=== PATIENT | female | born 1965 | race Caucasian/White ===

== ENCOUNTER 2017-06-07 13:14 | Emergency (ER) | payer BC ==
[2017-06-07 13:29] VITALS: BP 161/50
[2017-06-07] MEDS ORDERED: DEXAMETHASONE 10 MG/ML VIAL PO STA (13:34)
--- NOTE | 2017-06-07 13:36 | ED Physician Documentation ---
PD HPI URI - Stated complaint Stated Complaint: SORE THROAT/LOST VOICE/HEADACHE - Chief complaint Chief Complaint: Heent - History obtained from History obtained from: Patient, Family - History of Present Illness Timing - onset: How many weeks ago (1.5) Timing duration: Weeks (1.5) Timing details: Gradual onset Pain level max: 5 Pain level now: 4 Associated symptoms: Nasal congestion, Rhinorrhea, Sore throat, Productive cough (plascencia/green sputum). No: Fever, Chills, Chest pain, Dyspnea Contributing factors: Sick contact Improves by: Rest Worsened by: Activity, Breathing Recently seen: Clinic (Patient was seen in urgent care and given antibiotic. Unknown diagnosis. States she did not take the antibiotic.) Review of Systems Constitutional: denies: Fever, Chills Nose: reports: Rhinorrhea / runny nose, Congestion Throat: reports: Sore throat Respiratory: reports: Cough. denies: Wheezing : denies: Dysuria Skin: denies: Rash Musculoskeletal: denies: Neck pain, Back pain Neurologic: denies: Headache PD PAST MEDICAL HISTORY - Past Medical History Past Medical History: No - Past Surgical History Past Surgical History: No - Present Medications Home Medications: Ambulatory Orders Medication Instructions Recorded Confirmed Benzonatate [Tessalon Perle] 100 - 200 mg PO TID PRN #30 capsule 06/07/17 Cetirizine HCl/Pseudoephedrine 1 each PO BID PRN #30 tab.er.12h 06/07/17 [Zyrtec-D Tablet] Hormone Replacement Therapy 06/07/17 Neomycin/Polymyx/Hc Otic Drops 4 drops LEFTEAR TID #1 bottle 06/07/17 [Cortisporin Ear Susp] Thyroid Supplement 06/07/17 - Allergies Allergies/Adverse Reactions: Allergies Allergy/AdvReac Type Severity Reaction Status Date / Time codeine Allergy Hives Verified 06/07/17 13:29 Penicillins Allergy Hives Verified 06/07/17 13:29 oxycodone AdvReac Edema Verified 06/07/17 13:29 - Living Situation Living Situation: reports: With family Living Arrangement: reports: At home - Social History Does the pt smoke?: No Smoking Status: Never smoker Does the pt have substance abuse?: No - Family History Family history: reports: Non contributory PD ED PE NORMAL - Vitals Vital signs reviewed: Yes - General General: Alert and oriented X 3, No acute distress, Well developed/nourished - HEENT HEENT: PERRL, Ears normal, Moist mucous membranes, Pharynx benign (Posterior cobblestoning. Normal tonsils. No exudates. Uvula midline. Normal phonation) - Neck Neck: Supple, no meningeal sign, No bony TTP, No adenopathy - Cardiac Cardiac: RRR, Strong equal pulses - Respiratory Respiratory: No respiratory distress, Clear bilaterally - Abdomen Abdomen: Soft, Non tender, Non distended - Derm Derm: Warm and dry, No rash - Neuro Neuro: Alert and oriented X 3 - Psych Psych: Normal mood, Normal affect Results - Vitals Vitals: Vital Signs - 24 hr 06/07/17 13:27 Temperature 37.1 C Heart Rate 64 Respiratory 16 Rate Blood Pressure 161/50 H O2 Saturation 100 Oxygen O2 Source Room air PD MEDICAL DECISION MAKING - ED course Complexity details: considered differential, d/w patient, d/w family ED course: Patient is a 51-year-old female presents to the emergency department what appears to be a viral upper respiratory infection. No evidence of streptococcal pharyngitis clinically. Will place on decongestants for home. Given dexamethasone here. Will continue supportive care and follow-up with her doctor. She is well-appearing, nontoxic. Patient counseled regarding signs and symptoms for which I believe and urgent re-evaluation would be necessary. Patient with good understanding of and agreement to plan and is comfortable going home at this time This document was made in part using voice recognition software. While efforts are made to proofread this document, sound alike and grammatical errors may occur. Departure - Departure Disposition: 01 Home, Self Care Clinical Impression: Viral URI Otitis externa Qualifiers: Otitis externa type: unspecified type Chronicity: acute Laterality: left Qualified Code(s): H60.502 - Unspecified acute noninfective otitis externa, left ear Condition: Good Instructions: ED Viral Syndrome, ED Otitis Externa Follow-Up: Gary Hwang MD [Primary Care Provider] - Within 1 week Prescriptions: Benzonatate [Tessalon Perle] 100 - 200 mg PO TID PRN #30 capsule PRN Reason: Cough Cetirizine HCl/Pseudoephedrine [Zyrtec-D Tablet] 1 each PO BID PRN #30 tab.er.12h PRN Reason: Nasal Congestion Neomycin/Polymyx/Hc Otic Drops [Cortisporin Ear Susp] 4 drops LEFTEAR TID #1 bottle Comments: Return if you worsen. Drink plenty of fluids and rest.
== END 2017-06-07 13:44 | disposition home or self-care (01) ==
LOC: ED 13:14
DX: J06.9 Acute upper respiratory infection, unspecified (principal); B97.89 Other viral agents as the cause of diseases classified elsewhere; H60.502 Unspecified acute noninfective otitis externa, left ear
CPT/HCPCS: 99281; 99283

== ENCOUNTER 2017-10-19 08:00 | Outpatient (CLI) | payer BC | END 2017-10-19 08:01 | LOC: LAB.R 08:00 | PROVIDERS: ATTEND Physician Assistant Medical | DX: N39.0 Urinary tract infection, site not specified (principal) | CPT/HCPCS: 87086 ==

== ENCOUNTER 2018-12-29 11:47 | Emergency (ER) | payer BC ==
--- NOTE | 2018-12-29 13:10 | ED Physician Documentation ---
PD HPI FEMALE - Stated complaint Stated Complaint: FEMALE - Chief complaint Chief Complaint: UTI - History obtained from History obtained from: Patient - History of Present Illness Timing - onset: How many days ago (2-3) Timing - duration: Days Timing - details: Abrupt onset, Still present (has dysuria c/w UTI for few days. Seen by PMD and Rx Macrobid, which she has been on since earlier yesterday. Having increased symptoms voiding and also some lower back pain. No fevers.) Associated symptoms: Abdominal pain, Dysuria, Urinary frequency. No: Fever, Vaginal bleeding, Vaginal discharge Similar symptoms before: Diagnosis (UTI in the past) Recently seen: Clinic Review of Systems Constitutional: denies: Fever, Chills Respiratory: denies: Dyspnea, Cough GI: denies: Nausea, Vomiting PD PAST MEDICAL HISTORY - Past Medical History Past Medical History: No - Past Surgical History Past Surgical History: No - Present Medications Home Medications: Ambulatory Orders Medication Instructions Recorded Confirmed Benzonatate [Tessalon Perle] 100 - 200 mg PO TID PRN #30 capsule 06/07/17 Cetirizine HCl/Pseudoephedrine 1 each PO BID PRN #30 tab.er.12h 06/07/17 [Zyrtec-D Tablet] Hormone Replacement Therapy 06/07/17 Neomycin/Polymyx/Hc Otic Drops 4 drops LEFTEAR TID #1 bottle 06/07/17 [Cortisporin Ear Susp] Thyroid Supplement 06/07/17 Sulfamethox/Trimeth 800/160 1 each PO BID #14 tablet 12/29/18 [Bactrim Ds 800/160] - Allergies Allergies/Adverse Reactions: Allergies Allergy/AdvReac Type Severity Reaction Status Date / Time codeine Allergy Hives Verified 12/29/18 11:51 Penicillins Allergy Hives Verified 12/29/18 11:51 oxycodone AdvReac Edema Verified 12/29/18 11:51 - Social History Does the pt smoke?: No Smoking Status: Never smoker Does the pt drink ETOH?: No Does the pt have substance abuse?: No - Immunizations Immunizations are current?: Yes - POLST Patient has POLST: No PD ED PE NORMAL - Vitals Vital signs reviewed: Yes - General General: Alert and oriented X 3, No acute distress, Well developed/nourished - Abdomen Abdomen: Soft, Non tender - Female Female : Deferred - Back Back: No CVA TTP - Derm Derm: Normal color, Warm and dry Results - Vitals Vitals: Vital Signs - 24 hr 12/29/18 12/29/18 11:51 14:12 Temperature 36.6 C Heart Rate 52 L 54 L Respiratory 16 16 Rate Blood Pressure 155/73 H 148/72 H O2 Saturation 100 100 Oxygen O2 Source Room air - Labs Labs: Laboratory Tests 12/29/18 13:05 Urine Color ORANGE Urine Clarity CLEAR Urine pH 6.0 Ur Specific [place] 1.010 Urine Protein Urine Glucose (UA) 100 H Urine Ketones 15 H Urine Occult Blood Urine Nitrite Urine Bilirubin COLOR INTERFERENCE Urine Urobilinogen Ur Leukocyte Esterase Ur Microscopic Review NOT INDICATED Urine Culture Comments NOT INDICATED Urine HCG, Qual NEGATIVE PD MEDICAL DECISION MAKING - ED course Complexity details: considered differential (persistent symptoms with some back pain now, on Macribd orally but worsened the past day while on abx (startd 2 days ago). ), d/w patient Departure - Departure Disposition: 01 Home, Self Care Clinical Impression: Urinary tract infection Qualifiers: Urinary tract infection type: site unspecified Hematuria presence: without h ematuria Qualified Code(s): N39.0 - Urinary tract infection, site not specified Condition: Stable Record reviewed to determine appropriate education?: Yes Instructions: Urinary Tract Infecs Women Prescriptions: Sulfamethox/Trimeth 800/160 [Bactrim Ds 800/160] 1 each PO BID #14 tablet Comments: Stay well-hydrated. Stop the Macrobid and change to Bactrim twice daily for a week. See if that clears her infection better. Tylenol or ibuprofen as needed for discomfort. Recheck if not improving over the next couple of days. I have transmitted your prescription to the [facility] in [place]. Discharge Date/Time: 12/29/18 14:12
[2018-12-29 13:49] LABS: GLUCOSE, URINE (UA) 100 mg/dL (NEGATIVE); KETONES,URINE (UA) 15 mg/dL (NEGATIVE)
[2018-12-29] MEDS ORDERED: SULFAMETH/TRIMETH DS 800/160 MG TABLET PO STA (13:53)
[2018-12-29 13:54] LABS: CLARITY,URINE CLEAR (CLEAR)
[2018-12-29 13:56] LABS: BILIRUBIN,URINE COLOR INTERFERENCE (NEGATIVE); HCG UR QUAL NEGATIVE
[2018-12-29 14:12] VITALS: BP 148/72
== END 2018-12-29 14:12 | disposition home or self-care (01) ==
LOC: ED 11:47
DX: N39.0 Urinary tract infection, site not specified (principal)
CPT/HCPCS: 81003; 81025; 99283; A9270; 81001; 87086

== ENCOUNTER 2019-12-20 12:35 | Outpatient (CLI) | payer BC ==
--- NOTE | 2019-12-20 15:38 | XRAY Report ---
PROCEDURE: Cervical Spine 2 View INDICATIONS: CERVICAL MYELOPATHY WITH CERVICAL RADICULOPATHY TECHNIQUE: 3 view(s) of the cervical spine were acquired. COMPARISON: None. FINDINGS: Bones: No fractures or dislocations to the T1 level. The lateral masses of C1 appear intact on the odontoid view. No suspicious bony lesions. There has been interbody staple fusion between C5 and C6 , and an interbody disc spacers placed with posterior localization marker the deep to the posterior l ongitudinal ligament as expected. Degenerative C6-7 disc disease at the level immediately below is mo derately severe with anterior and posterior projecting osteophytes. Soft tissues: No prevertebral soft tissue swelling. IMPRESSION: Prior cervical fusion C5-6 with interbody disc prosthesis. C6-7 degenerative changes are moderately severe immediately below the level of fusion. Normal alignment maintained. Reviewed by: Brent Wolfe MD on 12/20/2019 3:36 PM PST Approved by: Brent Wolfe MD on 12/20/2019 3:36 PM PST Station ID: [id number]
== END 2019-12-20 12:36 | disposition home or self-care (01) ==
LOC: DI.S 12:35
PROVIDERS: ATTEND Neurological Surgery
DX: M47.12 Other spondylosis with myelopathy, cervical region (principal); M47.22 Other spondylosis with radiculopathy, cervical region; Z98.1 Arthrodesis status
CPT/HCPCS: 72040

== ENCOUNTER 2020-02-20 14:44 | Outpatient (CLI) | payer BC ==
--- NOTE | 2020-02-20 20:28 | XRAY Report ---
PROCEDURE: Cervical Spine Complete INDICATIONS: CERVICAL SPINE FUSION TECHNIQUE: 5 view(s) of the cervical spine were acquired. COMPARISON: 12/20/2019 FINDINGS: Bones: No fractures or dislocations to the superior endplate of T2 level. The lateral masses of C1 appear intact on the odontoid view. Stable postsurgical changes of cervical spinal fusion at C5-6 wit h interbody disc prosthesis placement. No significant motion visualized between flexion and extension views. Mild straightening of cervical lordosis as before. Degenerative changes at C6-7 with disc spa ce loss and prominent anterior osteophyte formation. This is also unchanged. No suspicious bony lesio ns. Soft tissues: No prevertebral soft tissue swelling. IMPRESSION: Stable postsurgical changes status post cervical fusion of C5-6 with interbody disc pros thesis. Stable alignment without significant motion at the fused segment on flexion or extension view s. Reviewed by: Gianfranco Pritchard MD on 02/20/2020 7:27 PM AKST Approved by: Gianfranco Pritchard MD on 02/20/2020 7:27 PM AKST Station ID: [id number]
== END 2020-02-20 14:45 | disposition home or self-care (01) ==
LOC: DI 14:44
PROVIDERS: ATTEND Neurological Surgery
DX: M54.2 Cervicalgia (principal); Z98.1 Arthrodesis status

== ENCOUNTER 2020-06-19 10:03 | Day surgery (SDC) | payer BC ==
[2020-06-19] MEDS ORDERED: LACTATED RINGERS 1,000 ML IV ONE ×2 (10:49→12:28)
--- NOTE | 2020-06-19 11:14 | ANESTHESIA ---
Pre-Anesthesia VS, & Labs - Diagnosis hematochezia - Procedure colonoscopy Vital Signs: Temp Pulse Resp BP Pulse Ox 36.9 C 54 L 16 122/72 100 06/19/20 10:14 06/19/20 10:14 06/19/20 10:14 06/19/20 10:14 06/19/20 10:14 Height: 5 ft 6.5 in Weight (kg): 58 kg Body Mass Index: 20.3 BMI Classification: Healthy weight - NPO >8 hours - Is Patient ?: No Home Medications and Allergies Hormone Replacement Therapy 06/07/17 Thyroid Supplement 2 mg PO DAILY 06/07/17 Allergies/Adverse Reactions: Allergies Allergy/AdvReac Type Severity Reaction Status Date / Time codeine Allergy Hives Verified 12/29/18 11:51 Penicillins Allergy Hives Verified 12/29/18 11:51 meperidine [From Demerol] AdvReac Itching Verified 06/19/20 10:44 oxycodone AdvReac Edema Verified 12/29/18 11:51 Anes History & Medical History - Anesthetic History Anesthesia Complications: reports: Opioid sensitivity Family history of Anesthesia Complications: Denies Family history of Malignant Hyperthermia: Denies - Medical History Cardiovascular: reports: None Pulmonary: reports: None Gastrointestinal: reports: None Urinary: reports: None Neuro: reports: Other (Had ACDF Nov 2019, still sore neck from that) Musculoskeletal: reports: None Endocrine/Autoimmune: reports: HyPOthyroidism Skin: reports: None Smoking Status: Never smoker - Surgical History Gynecologic: reports: Hysterectomy, Other Neurologic: reports: Other Orthopedic: reports: Other Exam General: Alert, Oriented x3, Cooperative, No acute distress Dental: WNL Mouth Openin Fingerbreadth Neck Mobility: Reduced (sore from ACDF) Mallampati classification: II Respiratory: Lungs clear, Normal breath sounds, No respiratory distress, No accessory muscle use Cardiovascular: Regular rate, Normal S1, Normal S2, No murmurs Plan Anesthesia Type: General, Total IV Consent for Procedure(s) Verified and Reviewed: Yes Code Status: Attempt Resuscitation ASA classification: 1-Healthy patient Is this case an emergency?: No
[2020-06-19] MEDS ORDERED: PROPOFOL 1000 MG/100 ML 1,000 MG/100 ML BOTTLE IV ONE (11:35)
[2020-06-19 12:39] VITALS: BP 125/72
--- NOTE | 2020-06-19 13:12 | ANESTHESIA POST OP EVALUATION ---
Anesthesia Post Eval - Post Anesthesia Eval Vitals: Last Vital Signs Temp 36.5 C 06/19/20 12:35 Pulse 61 06/19/20 12:35 Resp 12 06/19/20 12:35 BP 125/72 06/19/20 12:35 Pulse Ox 100 06/19/20 12:35 CV Function Including HR & BP: Stable Pain Control: Satisfactory Nausea & Vomiting: Negative Mental Status: Baseline Respiratory Status: Airway Patent Hydration Status: Satisfactory Anesthesia Complications: None
== END 2020-06-19 10:04 | disposition home or self-care (01) ==
LOC: SDS 10:03
PROVIDERS: ATTEND Surgery
PROC: 0DBN8ZZ Excision of Sigmoid Colon, Via Natural or Artificial Opening Endoscopic (ICD-10-PCS; principal; 2020-06-19 11:00)
DX: D12.5 Benign neoplasm of sigmoid colon (principal); K64.8 Other hemorrhoids; K63.89 Other specified diseases of intestine; E03.9 Hypothyroidism, unspecified; F43.10 Post-traumatic stress disorder, unspecified; F41.8 Other specified anxiety disorders; F10.11 Alcohol abuse, in remission
CPT/HCPCS: 45384; J7120

== ENCOUNTER 2020-10-13 11:15 | Outpatient (CLI) | payer BC ==
--- NOTE | 2020-10-13 13:25 | CT Report ---
PROCEDURE: CERVICAL SPINE WO INDICATIONS: SPINAL STENOSIS IN CERVICAL REGION TECHNIQUE: Noncontrast 3 mm thick sections acquired from the skull base to the T4 level. Sagittal and coronal r eformats were then constructed. For radiation dose reduction, the following was used: automated exp osure control, adjustment of mA and/or kV according to patient size. COMPARISON: Correlation is made with prior cervical spine radiographs, 02/20/2020, 12/20/2019 FINDINGS: Image quality: Excellent. Bones: No fractures or dislocations. Visualized superior ribs are intact. Postoperative change can be seen at C5-C6, with an anteriorly placed disc fusion device. There is mod erate to severe disc space narrowing seen at C6-C7. Posteriorly directed endplate osteophytes are see n at this level. Milder degenerative changes are seen elsewhere. Soft tissues: Prevertebral soft tissues are normal in thickness. No paravertebral hematomas. No ap ical pneumothoraces. IMPRESSION: Unremarkable C5-C6 postoperative hardware. Focal C6-C7 degenerative change. Reviewed by: Alli Gonzalez MD on 10/13/2020 12:24 PM AKDT Approved by: Alli Gonzalez MD on 10/13/2020 12:24 PM RHONDA Station ID: [id number]
== END 2020-10-13 11:16 | disposition home or self-care (01) ==
LOC: DI 11:15
PROVIDERS: ATTEND Physician Assistant
DX: M47.812 Spondylosis without myelopathy or radiculopathy, cervical region (principal)

== ENCOUNTER 2020-11-07 14:20 | Outpatient (CLI) | payer BC ==
--- NOTE | 2020-11-08 10:47 | Mammography Report ---
BILATERAL DIGITAL SCREENING MAMMOGRAM 3D/2D: 11/07/2020 CLINICAL: Routine screening. Comparison is made to exams dated: 02/22/2013 mammogram, 02/22/2013 ultrasound, and 02/10/2013 mammogram - [facility]. There are scattered fibroglandular elements in both breasts. No significant masses, calcifications, or other findings are seen in either breast. There has been no significant interval change. IMPRESSION: NEGATIVE There is no mammographic evidence of malignancy. A 1 year screening mammogram is recommended. This exam was interpreted at Station ID: [id number]. NOTE: For mammograms, a report in lay terms will be sent to the patient. Approximately 15% of breast malignancies will not be visualized mammographically. In the management of a palpable breast mass, a negative mammogram must not discourage biopsy of a clinically suspicious lesion. Electronically Signed By: Nathanael Dominguez acr/penrad:11/07/2020 15:03:23 ACR BI-RADS Category 1: Negative [id number] PARENCHYMAL PATTERN: (A) - The breast(s) demonstrate(s) scattered fibroglandular densities. BI-RADS CATEGORY: (1) - 1 RECOMMENDATION: (ANNUAL) - Recommend routine annual screening mammography. [id number] 1 year screening LATERALITY: (B)
== END 2020-11-07 14:21 | disposition home or self-care (01) ==
LOC: DI 14:20
PROVIDERS: ATTEND Physician Assistant
DX: Z12.31 Encounter for screening mammogram for malignant neoplasm of breast (principal)

== ENCOUNTER 2020-11-14 10:48 | Outpatient (CLI) | payer BC | END 2020-11-14 10:49 | disposition short-term general hospital (02) | LOC: EMS 10:48 | DX: I49.9 Cardiac arrhythmia, unspecified (principal); I47.1 Supraventricular tachycardia | CPT/HCPCS: A0425; A0427 ==